=== PATIENT | male | born 1995 | race African-American/Black ===

== ENCOUNTER 2018-09-09 16:01 | Emergency (ER) | payer OTHER ==
[~2018-09-09] VITALS: Ht 177.8 cm; Wt 99.8 kg
[2018-09-09 16:45] VITALS: BP 136/87
--- NOTE | 2018-09-09 16:45 | NUR ---
ED Nurse Note: pt walked into ED c/o right side pain after falling at work on tues, while sitting on the chair, pt reports the chair had broken leg and when pt was sitting it broke and he fell on right side. Pt AA&ox4, gcs=15, skin warm and dry, resp even and unlabored, ambulatory w/ steady gait, -n/v/d, +CMS intact BLE/ BUE, no obvious deformity, wound, or contusion noted.
[2018-09-09] MEDS ORDERED: ROBAXIN-750750 MG PO (17:24)
[2018-09-09] MEDS ORDERED: IBUPROFEN600 MG ORAL (17:24)
--- NOTE | 2018-09-09 17:24 | Emergency Room Report ---
History of Present Illness General Chief Complaint: Back Injury Source: Patient Present Illness HPI 23-year-old male presents to the emergency department complaining of 5 out of 10 in severity tenderness and aching sensation to the right side of his low back as well as the right side of his neck/shoulder area. Patient status post fall from a chair. Patient describes that he sat down on a chair and a leg broke from underneath causing him to fall with the chair. Patient denies hitting his head he denies loss of consciousness. Denies nausea or vomiting. Denies numbness tingling or loss of sensation or gross motor movements of the extremities, incontinence of bowel or bladder. Allergies: Coded Allergies: No Known Allergies (Unverified , 09/09/18) Patient History Past Medical History: see triage record Past Surgical History: none Pertinent Family History: none Reviewed Nursing Documentation: PMH: Agreed; PSxH: Agreed Nursing Documentation-PMH Past Medical History: No History, Except For Hx Asthma: Yes Review of Systems All Other Systems: negative except mentioned in HPI Physical Exam Vital Signs Date Time Temp Pulse Resp B/P (MAP) Pulse Ox O2 Delivery O2 Flow Rate FiO2 09/09/18 16:06 98.8 88 20 136/87 98 Room Air Sp02 EP Interpretation: reviewed, normal General Appearance: no apparent distress, alert, GCS 15, non-toxic Head: normocephalic, atraumatic Eyes: bilateral eye normal inspection, bilateral eye PERRL ENT: hearing grossly normal, normal voice Neck: full range of motion, tender lateral - right lateral TTP, FROM Respiratory: chest non-tender, lungs clear, normal breath sounds, speaking full sentences Cardiovascular #1: regular rate, rhythm Musculoskeletal: back normal, gait/station normal, normal range of motion, tender - TTP to right paraspinal musculature of the lumbar area. no midline spinous process TTP, no step off or obvious deformity in neck or back. Neurologic: alert, oriented x3, responsive, motor strength/tone normal, sensory intact, speech normal, grossly normal Psychiatric: judgement/insight normal Skin: normal color, no rash, warm/dry, well hydrated Lymphatic: no adenopathy Medical Decision Making PA Attestation Dr. Keita is my supervising Physician whom patient management has been discussed with. Diagnostic Impression: Primary Impression: Muscle strain Additional Impression: Muscle spasm of back ER Course 23-year-old male presents to the emergency department complaining of 5 out of 10 in severity tenderness and aching sensation to the right side of his low back as well as the right side of his neck/shoulder area. Patient status post fall from a chair. Patient describes that he sat down on a chair and a leg broke from underneath causing him to fall with the chair. Patient denies hitting his head he denies loss of consciousness. Denies nausea or vomiting. Denies numbness tingling or loss of sensation or gross motor movements of the extremities, incontinence of bowel or bladder. Ddx considered but are not limited to Fracture, dislocation, contusion,, Sprain/ Strain/Spasm Vital signs: are WNL, pt. is afebrile H&PE are most consistent with contusion and muscle spasm- soft tissue injury, no evidence to suggest spinal chord injury, cauda equina, or fractures. ORDERS: none required at this time. ED INTERVENTIONS: none required at this time. -I do not identify an emergent condition at this time. With current presentation , pt. is stable for close outpatient follow up and conservative treatment. D/ w pt. to return promptly to ED with worsening or new symptoms.- Pt. verbalizes' understanding and agreement with proposed treatment plan.proposed treatment plan. DISCHARGE: At this time pt. is stable for d/c to home. Will provide printed patient care instructions, and any necessary prescriptions. Care plan and follow up instructions have been discussed with the patient prior to discharge. Last Vital Signs Date Time Temp Pulse Resp B/P (MAP) Pulse Ox O2 Delivery O2 Flow Rate FiO2 09/09/18 16:45 98.8 78 16 136/87 97 Room Air Disposition: HOME, SELF-CARE Condition: Stable Scripts Methocarbamol* (ROBAXIN-750*) 750 Mg Tablet 750 MG PO QID for 7 Days, #28 TAB 0 Refills Prov: Debi Gamboa 09/09/18 Ibuprofen* (MOTRIN*) 600 Mg Tablet 600 MG ORAL THREE TIMES A DAY, #30 TAB 0 Refills Prov: Debi Gamboa 09/09/18 Departure Forms: Return to Work Return to Work Date: Sep 13, 2018 Work Restrictions: None Other Restrictions: May return Sooner if Symptoms have resolved. Return to Full Activity: Sep 13, 2018 Patient Instructions: Back Pain, Adult Additional Instructions: Take medications as directed. Follow up with a Primary Care Provider in 3-5 days, even if your symptoms have resolved. --Please review list of primary care clinics, if you do not already have a primary care provider Return sooner to ED if new symptoms occur, or current symptoms become worse. Do not drink alcohol, drive, or operate heavy machinery while taking Robaxin ( Muscle Relaxers) as this may cause drowsiness. - Please note that this Emergency Department Report was dictated using [employer] technology software, occasionally this can lead to erroneous entry secondary to interpretation by the dictation equipment. Debi Gamboa Sep 09, 2018 17:24
[2018-09-09 17:35] VITALS: BP 118/98
--- NOTE | 2018-09-09 17:35 | NUR ---
ED Nurse Note: Pt discharge instruction provided w/ prescription, id band removed, pt education done via discussion and handout, pt verbalized understanding and agrees with plan, pt advised to follow up with pcp regarding pt's condition, pt advised to return to ed if s/s worsen or new s/s develop.
== END 2018-09-09 17:45 | disposition home or self-care (01) ==
LOC: EMR 17:40
DX: S39.012A Strain of muscle, fascia and tendon of lower back, initial encounter (principal); M62.830 Muscle spasm of back; W07.XXXA Fall from chair, initial encounter; Y92.511 Restaurant or cafe as the place of occurrence of the external cause; Y99.0 Civilian activity done for income or pay
CPT/HCPCS: 99282

== ENCOUNTER 2019-01-03 21:13 | Emergency (ER) | payer SELFPAY ==
[~2019-01-03] VITALS: Ht 175.3 cm; Wt 99.8 kg
[~2019-01-03 21:13] MED LIST: IBUPROFEN600 MG ORAL; ROBAXIN-750750 MG PO
[2019-01-03 21:20] VITALS: BP 141/82
[2019-01-03] MEDS ORDERED: NKM (21:20)
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
[2019-01-03] MEDS ORDERED: Methocarbamol 750mg tab ORAL ONE (22:00)
--- NOTE | 2019-01-03 22:02 | NUR ---
ED Nurse Note: Pt refused to have a x-ray, informed MD.
--- NOTE | 2019-01-03 22:07 | NUR ---
ED Nurse Note: Meds given as ordered.
[2019-01-03] MEDS ORDERED: ROBAXIN-750750 MG PO (22:25)
[2019-01-03] MEDS ORDERED: LIDODERM700 M1 TOPIC (22:25)
[2019-01-03] MEDS ORDERED: IBUPROFEN600 MG ORAL (22:25)
[2019-01-03 22:35] VITALS: BP 138/81
--- NOTE | 2019-01-03 22:35 | NUR ---
ER DISCHARGE NOTE: Patient is cleared to be discharged per Avelina. Pt is A/O x 4 on room air with stable vital signs. Pt was given dc and prescription instructions and was able to verbalize understanding. Pt's ID band removed. Pt is able to ambulate with steady gait and pt took all belongings. Accompanied by his family.
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
== END 2019-01-03 22:35 | disposition home or self-care (01) ==
LOC: EDBD 21:13 → EMR 21:40
DX: M54.9 Dorsalgia, unspecified (principal); V43.52XA Car driver injured in collision with other type car in traffic accident, initial encounter; Y92.410 Unspecified street and highway as the place of occurrence of the external cause
CPT/HCPCS: 99282